=== PATIENT | male | born 1970 | race American Indian/Alaskan Native ===

== ENCOUNTER 2017-02-10 20:59 | Emergency (ER) | payer OTHER ==
--- NOTE | 2017-02-10 22:36 | XRay Report ---
FINAL REPORT EXAM: XR TOE(S) 2+V LT HISTORY: trauma,swelling/pain 5th digit TECHNIQUE: AP, lateral, and oblique views of the left 5th toe PRIORS: None. FINDINGS: There is cortical deformity suspicious for a nondisplaced fracture involving the base of the 5th proximal phalanx. The fracture line extends to the proximal articular surface. Overlying soft tissue swelling at the 5th metatarsophalangeal joint is noted. No dislocation is seen. No radiopaque foreign bodies are seen. Bony mineralization is normal and joint spaces are maintained. IMPRESSION: Acute nondisplaced fracture involving the base of the 5th proximal phalanx.
[2017-02-11] MEDS ORDERED: MOTRIN PO ONE (01:40)
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
[2017-02-11 02:47] VITALS: BP 132/89
== END 2017-02-11 02:46 | disposition home or self-care (01) ==
LOC: ED 20:59
DX: S92.502A Displaced unspecified fracture of left lesser toe(s), initial encounter for closed fracture (principal); M79.1 Myalgia; M54.2 Cervicalgia; I10 Essential (primary) hypertension; F12.10 Cannabis abuse, uncomplicated; F17.200 Nicotine dependence, unspecified, uncomplicated; V89.2XXA Person injured in unspecified motor-vehicle accident, traffic, initial encounter; Y92.488 Other paved roadways as the place of occurrence of the external cause; Y93.89 Activity, other specified; Y99.8 Other external cause status